=== PATIENT | male | born 1950 | race Two or more races ===

== ENCOUNTER 2021-02-18 07:00 | Day surgery (SDC) | payer OTHER | END 2021-02-18 12:10 | disposition home or self-care (01) | LOC: AMB-ENDOS 07:00 | PROVIDERS: ATTEND Surgery | DX: D12.2 Benign neoplasm of ascending colon (principal); Z20.822 Contact with and (suspected) exposure to COVID-19 ==

== ENCOUNTER 2021-03-17 10:45 | Inpatient (IN) | payer OTHER ==
[~2021-03-17] VITALS: Ht 162.6 cm; Wt 77.1 kg
[2021-03-17] MEDS ORDERED: GLIPIZIDE XL5 MG PO (14:06)
[2021-03-17] MEDS ORDERED: FORTAMET500 MG PO (14:06)
[2021-03-17] MEDS ORDERED: ZESTRIL20 MG PO (14:06)
[2021-03-17] MEDS ORDERED: CARVEDILOL6.25 M1 PO (14:07)
[2021-03-17] MEDS ORDERED: VYTORIN 10-401 EACH PO (14:07)
[2021-03-17] MEDS ORDERED: ADULT LOW DOSE81 M1 PO (14:08)
[2021-03-25] MEDS ORDERED: OXYC1TAB9 PO (15:44)
[2021-03-25] MEDS ORDERED: HYOSCYAMINE0.125 M1 SL (15:44)
[2021-03-25] MEDS ORDERED: INTESTINEX680 M1 PO (15:45)
== END 2021-03-25 18:44 | disposition home or self-care (01) | DRG 331 ==
LOC: EDSTATUS 10:45 → ADM 10:45 → O/R 03-24 05:55 → SURH 03-24 05:55 → O/R 03-24 09:00 → SURH 03-24 11:18
PROVIDERS: ADMIT Surgery; ATTEND Surgery
PROC: 3E0F7SF Introduction of Other Gas into Respiratory Tract, Via Natural or Artificial Opening (ICD-10-PCS; 2021-03-24)
PROC: 0DBH4ZZ Excision of Cecum, Percutaneous Endoscopic Approach (ICD-10-PCS; principal; 2021-03-24 09:00)
DX: D12.1 Benign neoplasm of appendix (principal)